=== PATIENT | male | born 1985 | race Caucasian/White ===

== ENCOUNTER 2018-10-31 21:39 | Emergency (ER) | payer MEDICAID ==
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
[2018-10-31 23:00] VITALS: BP 109/63
== END 2018-10-31 23:12 | disposition home or self-care (01) ==
LOC: ER 21:52
DX: S06.0X0A Concussion without loss of consciousness, initial encounter (principal); V49.60XA Unspecified car occupant injured in collision with unspecified motor vehicles in traffic accident, initial encounter
CPT/HCPCS: 70450; 99284